=== PATIENT | female | born 1975 | race Caucasian/White ===

== ENCOUNTER → 2017-10-12 | Outpatient (CLI) | payer OTHER ==
[~2017-10-12] MED LIST: CIPR500T21 PO; FLUO40CA PO; FLUO40CA12 PO; HYDR-3730 PO; LISI1TAB8 PO; OMEG300C3 PO; OMG1KC PO; PROM25TA14 PO
--- NOTE | 2017-10-14 08:09 | Diagnostic Imaging Report ---
Bilateral screening mammogram 2D views with tomosynthesis. The current study was also evaluated with a Computer Aided Detection (CAD) system. INDICATION: Screening. No current complaints stated on the questionnaire. COMPARISON: 08/14/2013. FINDINGS: The breasts are composed of scattered fibroglandular densities. Occasional benign-appearing calcifications are seen. Allowing for technique and positional differences, no suspicious change is seen. IMPRESSION: No significant change. ACR BI-RADS Category 2: Benign findings. Result letter will be mailed to the patient. Note: At least 10% of breast cancer is not imaged by mammography. Dictated by: Dictated on workstation # [id number]
== END ==
LOC: RAD 10:21
PROVIDERS: ATTEND Obstetrics & Gynecology
DX: Z12.31 Encounter for screening mammogram for malignant neoplasm of breast (principal)
CPT/HCPCS: 77067

== ENCOUNTER → 2018-11-13 | Outpatient (CLI) | payer OTHER ==
--- NOTE | 2018-11-13 22:00 | Diagnostic Imaging Report ---
INDICATION: Routine screening. Comparison is made with prior mammograms from 10/12/2017 and 08/14/2013. 2-D and 3-D bilateral screening mammography was performed with computer-aided detection (CAD) system. FINDINGS: Scattered fibroglandular densities are identified bilaterally. The parenchymal pattern is stable. No new mass or malignant-appearing microcalcifications are seen. The axillae are unremarkable. IMPRESSION: No mammographic features suspicious for malignancy are identified. ACR BI-RADS Category 1: Negative. Result letter will be mailed to the patient. Note: At least 10% of breast cancer is not imaged by mammography. Dictated by: Dictated on workstation # [id number]
== END ==
LOC: RAD 08:57
PROVIDERS: ATTEND Obstetrics & Gynecology
DX: Z12.31 Encounter for screening mammogram for malignant neoplasm of breast (principal)
CPT/HCPCS: 77067

== ENCOUNTER → 2019-12-03 | Outpatient (CLI) | payer OTHER ==
--- NOTE | 2019-12-03 11:02 | Diagnostic Imaging Report ---
INDICATION: Routine screening. Comparison is made with prior mammogram 11/13/2018 at 10/12/2017. 2-D and 3-D bilateral screening mammography was performed with CAD. Scattered fibroglandular densities are identified bilaterally. No dominant mass or malignant-appearing microcalcifications are seen. Minimal nodularity in the upper outer left breast is seen, most consistent with benign etiology. Axillae are unremarkable. IMPRESSION: BI-RADS Category 2 No mammographic features suspicious for malignancy are identified. ACR BI-RADS Category 2: Benign findings. Result letter will be mailed to the patient. Note: At least 10% of breast cancer is not imaged by mammography. Dictated by: Dictated on workstation # [id number]
== END ==
LOC: RAD 08:46
PROVIDERS: ATTEND Obstetrics & Gynecology
DX: Z12.31 Encounter for screening mammogram for malignant neoplasm of breast (principal)
CPT/HCPCS: 77067

== ENCOUNTER → 2021-03-23 | Outpatient (CLI) | payer OTHER ==
[~2021-03-23] MED LIST changes: +LISI1TAB46 PO; -LISI1TAB8 PO
--- NOTE | 2021-03-23 10:15 | Diagnostic Imaging Report ---
INDICATION: Routine screening. COMPARISON: 12/03/2019 and 11/13/2018. TECHNIQUE: 2D and 3D bilateral screening mammography was performed with CAD. FINDINGS: Scattered fibroglandular densities are noted bilaterally. The parenchymal pattern is stable. No spiculated mass or malignant appearing microcalcifications are seen. The axillae are unremarkable. IMPRESSION: No mammographic features suspicious for malignancy are identified. ACR BI-RADS Category 1: Negative. Result letter will be mailed to the patient. Note: At least 10% of breast cancer is not imaged by mammography. Dictated by: Dictated on workstation # [id number]
== END ==
LOC: RAD 09:15
PROVIDERS: ATTEND Obstetrics & Gynecology
DX: Z12.31 Encounter for screening mammogram for malignant neoplasm of breast (principal)
CPT/HCPCS: 77063; 77067

== ENCOUNTER → 2021-04-06 | Outpatient (CLI) | payer OTHER ==
--- NOTE | 2021-04-06 10:25 | Diagnostic Imaging Report ---
PROCEDURE: US right lower extremity venous. TECHNIQUE: Multiple real-time grayscale images were obtained over the right lower extremity in various projections. Additional spectral analysis and color Doppler duplex images were also obtained. INDICATION: Right lower extremity lump. There is no evidence of right lower extremity DVT. Right lower extremity deep venous system shows normal compressibility with normal response augmentation and Valsalva. No fluid collection or mass is seen. There is a thrombosed superficial vein in the upper right calf region corresponding to the area of lump. Findings are consistent with superficial thrombophlebitis. IMPRESSION: 1. No evidence of right lower extremity DVT. 2. Findings consistent with superficial thrombophlebitis, corresponding to the area of lump in the right calf. Dictated by: Dictated on workstation # [id number]
== END ==
LOC: RAD 09:45
PROVIDERS: ATTEND Nurse Practitioner Family
DX: R22.41 Localized swelling, mass and lump, right lower limb (principal)

== ENCOUNTER 2022-04-29 05:35 | Outpatient (CLI) | payer OTHER ==
[2022-04-30] MEDS ORDERED: GLUC-203 PO (14:05)
[2022-04-30] MEDS ORDERED: MULT-974 PO (14:05)
[2022-04-30] MEDS ORDERED: FLUO40CA12 PO (14:05)
[2022-04-30] MEDS ORDERED: VITA1CAP PO (14:05)
[2022-04-30] MEDS ORDERED: CETI10CA PO (14:05)
[2022-04-30] MEDS ORDERED: MONT10TA21 PO (14:05)
== END 2022-04-30 14:08 | disposition home or self-care (01) ==
LOC: PREOP 05:35
PROVIDERS: ATTEND Obstetrics & Gynecology
DX: Z01.818 Encounter for other preprocedural examination (principal)

== ENCOUNTER 2022-05-07 08:35 | Day surgery (SDC) | payer OTHER ==
[2022-05-07] VITALS (10 sets, daily range): BP systolic 116–138; BP diastolic 68–93
[~2022-05-07] VITALS: Ht 170 cm; Wt 157.0 kg
[~2022-05-07 08:35] MED LIST changes: +CETI10CA PO; +GLUC-203 PO; +MONT10TA21 PO; +MULT-974 PO; +VITA1CAP PO
[2022-05-07] MEDS ORDERED: ONDANSETRON 4 MG/2 ML (SDV) Z0FRAN ONE ×2 (08:48→09:38)
[2022-05-07] MEDS ORDERED: proPOfol 200 MG/20 ML (DIPRIVAN) VIAL IV ONE ×2 (08:48→10:18)
[2022-05-07] MEDS ORDERED: MIDAZOLAM 2 MG/2 ML (VERSED) VIAL ONE (08:48)
[2022-05-07] MEDS ORDERED: LIDOCAINE PF 2% 5 ML (XYLOCAINE) VIAL ONE (08:48)
[2022-05-07] MEDS ORDERED: fentaNYL INJ 100 MCG/2 ML AMP ONE (08:48)
[2022-05-07] MEDS ORDERED: SEVOFLURANE (ULTANE) 15 ML INHAL SOLN ONE (08:48)
--- NOTE | 2022-05-07 09:25 | Progress Note-Pre Operative ---
Pre-Operative Progress Note H&P Reviewed The H&P was reviewed, patient examined and no changes noted. Date Seen by Provider: May 07, 2022 Time Seen by Provider: :24 Date H&P Reviewed: May 07, 2022 Time H&P Reviewed: 09:24 Pre-Operative Diagnosis: retained IUD LETTY NAVARRO MD May 07, 2022 09:25
--- NOTE | 2022-05-07 09:26 | Progress Note-Post Operative ---
Post-Operative Progess Note Surgeon (s)/Center Machine Operator (s) Surgeon LETTY NAVARRO MD Center Machine Operator: none Pre-Operative Diagnosis retained IUD Post-Operative Diagnosis same Procedure & Operative Findings Date of Procedure 05/07/22 Procedure Performed/Findings hysteroscopic removal of retained IUD Anesthesia Type general Estimated Blood Loss Estimated blood loss (mL): mn Specimens/Packing Specimens Removed copper T IUD With no strings detached and no strings discernible LETTY NAVARRO MD May 07, 2022 09:26
[2022-05-07] MEDS ORDERED: oxyCODONE/APAP 5/325MG (PERCOCET 5) TABLET PO PRN (09:30)
[2022-05-07] MEDS ORDERED: D5 LR IV SOLUTION 1,000 ML IV SCH (09:30)
[2022-05-07] MEDS ORDERED: fentaNYL INJ 100 MCG/2 ML AMP IVP PRN (09:30)
[2022-05-07] MEDS ORDERED: KETOROLAC 30 MG/ML VIAL IVP ONE (09:30)
[2022-05-07] MEDS ORDERED: ONDANSETRON 4 MG/2 ML (SDV) Z0FRAN IVP PRN ×2 (09:30→10:45)
[2022-05-07] MEDS ORDERED: IBUP-1780 PO (09:32)
--- NOTE | 2022-05-07 09:33 | Discharge Inst-Simple/Standard ---
Discharge Inst-Standard Discharge Medications New, Converted or Re-Newed RX: Transmitted to Pharmacy Patient Instructions/Follow Up Plan of Care/Instructions/FU: PRN Activity as Tolerated: Yes Discharge Diet: No Restrictions Other Inst to Patient RTC PRN LETTY NAVARRO MD May 07, 2022 09:33
[2022-05-07] MEDS ORDERED: FAMOTIDINE 20MG/2ML IV (PEPCID) ONE (09:38)
[2022-05-07] MEDS ORDERED: SCOPOLAMINE 1.5 MG (TRANSDERM-SCOP) PATCH ONE (09:38)
[2022-05-07] MEDS ORDERED: SCOPOLAMINE 1.5 MG (TRANSDERM-SCOP) PATCH TD ONE (10:00)
[2022-05-07] MEDS ORDERED: FAMOTIDINE 20MG/2ML IV (PEPCID) IVP ONE (10:00)
[2022-05-07] MEDS ORDERED: ONDANSETRON 4 MG/2 ML (SDV) Z0FRAN IVP ONE (10:00)
[2022-05-07] MEDS ORDERED: PROPOFOL INJECTION 50 ML IV ONE (10:19)
--- NOTE | 2022-05-07 10:39 | Anesthesia-General Post-Op ---
General Patient Condition Mental Status/LOC: Same as Preop Cardiovascular: Satisfactory Nausea/Vomiting: Absent Respiratory: Satisfactory Pain: Controlled Complications: Absent Post Op Complications Complications None Follow Up Care/Instructions Patient Instructions None needed. Anesthesia/Patient Condition Patient Condition Patient is doing well, no complaints, stable vital signs, no apparent adverse anesthesia problems. No complications reported per nursing. JOSE HUGHES CRNA May 07, 2022 10:39
[2022-05-07] MEDS ORDERED: LACTATED RINGERS 1,000 ML IV PRN (10:45)
[2022-05-07] MEDS ORDERED: morphine INJ 10 MG/ML 1ML (SYR OR VIAL) IVP ONE (10:45)
[2022-05-07] MEDS ORDERED: fentaNYL INJ 100 MCG/2 ML AMP IVP ONE (10:45)
--- NOTE | 2022-05-07 10:59 | Diagnostic Imaging Report ---
PROCEDURE: US NONOB transvaginal. TECHNIQUE: Multiple real-time grayscale images were obtained of the pelvis in various projections endovaginally. INDICATION: Evaluate IUD. Uterus measures 10.5 x 5.1 x 6.4 cm. There is an IUD appropriately centered within the endometrial canal. Endometrium is 5 mm in thickness. No myometrial mass is detected. The ovaries could not be visualized. There are cervical nabothian cysts present. No adnexal mass or free fluid is detected. IMPRESSION: 1. The IUD is appropriately centered within the endometrial canal. 2. Nonvisualized ovaries. Dictated by: Dictated on workstation # [id number]
--- NOTE | 2022-05-07 15:31 | OPERATIVE REPORT ---
DATE OF SERVICE: 05/07/2022 PREOPERATIVE DIAGNOSIS: Retained IUD. POSTOPERATIVE DIAGNOSIS: Retained IUD. OPERATIVE PROCEDURE: Removal of retained IUD hysteroscopically. OPERATIVE DESCRIPTION: With the patient in supine position under satisfactory general anesthesia, she was repositioned in dorsal lithotomy position in the Lukasz stirrups and prepped and draped in the usual fashion for vaginal surgery. Urinary bladder was drained with a straight catheter. Weighted speculum placed in posterior fornix of vagina, cervix exposed and grasped anteriorly with single tooth tenaculum. Uterus sounded to 12 cm with uterine sound. The cervix was then serially dilated with Mendoza dilators to a #20 Mendoza and then the final step in dilation was a #9 Hegar dilator. Hysteroscope was introduced and the IUD was readily apparent. It was transverse up in the left cornu of the uterus. The hysteroscope was removed and down on the location of the IUD, a Javan stone forceps was introduced in the uterine cavity. The IUD was grasped and removed intact. The endometrial cavity was explored. The strings were not attached to the IUD. The cavity was explored, and no strings were identified. The hysteroscope and tenaculum were removed. There was no bleeding from the cervical os. There was minimal bleeding from the uterus itself; minimal bleeding from the puncture sites from the tenaculum. Sponge and needle counts were correct on completion of the procedure. Blood loss was minimal. The patient tolerated the procedure well and was transferred to recovery room after being uneventfully awakened from her general anesthesia. Job ID: [id number] DocumentID: [id number] Dictated Date: 05/07/2022 10:40:37 Sugar Reprocess Operator Head Date: 05/07/2022 15:30:36 Dictated By: LETTY NAVARRO MD
== END 2022-05-07 12:43 | disposition home or self-care (01) ==
LOC: SDC 08:35
PROVIDERS: ATTEND Obstetrics & Gynecology
DX: T83.39XA Other mechanical complication of intrauterine contraceptive device, initial encounter (principal)
CPT/HCPCS: 76830

== ENCOUNTER → 2022-05-10 | Outpatient (CLI) | payer OTHER ==
[2022-05-07 09:35] LABS: BASOPHILS % (AUTO) 0 % (0-10); EOSINOPHILS # (AUTO) 0.1 10^3/uL (0.0-0.3); EOSINOPHILS % (AUTO) 1 % (0-10); HEMATOCRIT 37 % (35-52); HEMOGLOBIN 11.5 g/dL (11.5-16.0); LYMPHOCYTES # (AUTO) 3.7 10^3/uL (1.0-4.0); LYMPHOCYTES % (AUTO) 38 % (12-44); MEAN CORPUSCULAR HEMOGLOBIN 25 pg (25-34); MEAN CORPUSCULAR HGB CONC 32 g/dL (32-36); MEAN CORPUSCULAR VOLUME 79 fL (80-99); MEAN PLATELET VOLUME 9.8 fL (9.0-12.2); MONOCYTES # (AUTO) 0.8 10^3/uL (0.0-1.0); MONOCYTES % (AUTO) 8 % (0-12); NEUTROPHILS # (AUTO) 5.2 10^3/uL (1.8-7.8); NEUTROPHILS % (AUTO) 53 % (42-75); PLATELET COUNT 334 10^3/uL (130-400); WHITE BLOOD COUNT 9.9 10^3/uL (4.3-11.0)
[~2022-05-10] VITALS: Ht 170 cm; Wt 157.0 kg
[~2022-05-10] MED LIST changes: +FAMOTIDINE 20MG/2ML IV (PEPCID) IVP ONE; +IBUP-1780 PO; +LACTATED RINGERS 1,000 ML IV PRN; +ONDANSETRON 4 MG/2 ML (SDV) Z0FRAN IVP ONE; +SCOPOLAMINE 1.5 MG (TRANSDERM-SCOP) PATCH TD ONE
[2022-05-10 09:25] LABS: HEMATOCRIT 38 % (35-52); HEMOGLOBIN 11.8 g/dL (11.5-16.0); MEAN CORPUSCULAR HEMOGLOBIN 25 pg (25-34); MEAN CORPUSCULAR HGB CONC 31 g/dL (32-36); MEAN CORPUSCULAR VOLUME 79 fL (80-99); MEAN PLATELET VOLUME 9.7 fL (9.0-12.2); PLATELET COUNT 321 10^3/uL (130-400); WHITE BLOOD COUNT 13.1 10^3/uL (4.3-11.0)
[2022-05-10 09:43] LABS: ALBUMIN 3.6 GM/DL (3.2-4.5); BILIRUBIN,TOTAL 0.3 MG/DL (0.1-1.0); CALCIUM 8.8 MG/DL (8.5-10.1); CREATININE SERUM 0.77 MG/DL (0.60-1.30); POTASSIUM 3.8 MMOL/L (3.6-5.0); TOTAL PROTEIN 6.6 GM/DL (6.4-8.2)
--- NOTE | 2022-05-10 13:14 | Diagnostic Imaging Report ---
INDICATION: Routine screening. COMPARISON: 03/23/2021 and 12/03/2019. TECHNIQUE: 2D and 3D bilateral screening mammography was performed with CAD. FINDINGS: Scattered fibroglandular densities are identified bilaterally. The parenchymal pattern is stable. No mass or malignant-appearing microcalcifications are seen. The axillae are unremarkable. IMPRESSION: No mammographic features suspicious for malignancy are identified. ACR BI-RADS Category 1: Negative. Result letter will be mailed to the patient. Note: At least 10% of breast cancer is not imaged by mammography. Dictated by: Dictated on workstation # [id number]
== END ==
LOC: RAD 09:30
PROVIDERS: ATTEND Family Medicine
DX: Z12.31 Encounter for screening mammogram for malignant neoplasm of breast (principal)
CPT/HCPCS: 36415; 77063; 77067; 80053; 80061; 84436; 84443; 85025; 85027; 87081

== ENCOUNTER 2023-04-09 10:30 | Emergency (ER) | payer OTHER ==
[~2023-04-09] VITALS: Ht 175 cm; Wt 149.0 kg
[~2023-04-09 10:30] MED LIST changes: -FAMOTIDINE 20MG/2ML IV (PEPCID) IVP ONE; -LACTATED RINGERS 1,000 ML IV PRN; +MONT-47 PO; -MONT10TA21 PO; -ONDANSETRON 4 MG/2 ML (SDV) Z0FRAN IVP ONE; -SCOPOLAMINE 1.5 MG (TRANSDERM-SCOP) PATCH TD ONE
--- NOTE | 2023-04-09 11:38 | ED Back Pain ---
General Chief Complaint: Back Problems Stated Complaint: BACK PAIN Nursing Triage Note: PT AMB TO RM 5. PT CO OF BACK PAIN, PT STATES 3 DAYS AGO FELT SOME PAIN BUT YESTERDAY BECAME MUCH WORSE. RATES BACK PAIN 07/07. PT IS CURRENTLY TAKING IBUPROFEN AND TYLENOL FOR PAIN Source of Information: Patient Exam Limitations: No Limitations History of Present Illness Date Seen by Provider: April 09, 2023 Time Seen by Provider: 11:25 Initial Comments 47-year-old female presents to the ED with complaints of right lower back pain. She states that on Tuesday when she got up for work she felt something pull in her back. She reports that stretching and rest has helped. She then tried to get up for work last night and pulled it again. She states the pain is best when she is resting and lying still, but states when she walks the pain comes up to a 8 or 9 out of 10. She denies any numbness or tingling in her back or legs, denies any urinary or bowel incontinence. She has been taking 800 mg of ibuprofen for pain. Last dose was around 8 AM this morning. Past medical history includes hypertension and depression. She takes Prozac, lisinopril/hydrochlorothiazide, Zyrtec, Singulair. Allergies and Home Medications Allergies Coded Allergies: Sulfa (Sulfonamide Antibiotics) (Verified Allergy, Intermediate, 02/16/16) levofloxacin (Verified Allergy, Intermediate, 02/16/16) Patient Home Medication List Home Medication List Reviewed: Yes Baclofen (Baclofen) 10 Mg Tablet, 10 MG PO TID Prescribed by: Tammy Feliciano on 04/09/23 1320 Cetirizine HCl (Zyrtec) 10 Mg Capsule, 10 MG PO DAILY, (Reported) Entered as Reported by: WESLEY BARNARD on 04/30/22 1405 Fluoxetine HCl (Prozac) 40 Mg Capsule, 40 MG PO DAILY, (Reported) Entered as Reported by: WESLEY BARNARD on 04/30/22 1405 Glucosam/Chond/Hyalu/Cf Borate (Move Free Joint Health Tablet) 750 Mg-100 Mg- 1.65 Mg-108 Mg Tablet, 1 EACH PO BID, (Reported) Entered as Reported by: WESLEY BARNARD on 04/30/22 1405 Ibuprofen (Ibuprofen) 800 Mg Tablet, 800 MG PO Q4H PRN for PAIN Prescribed by: LETTY GARCIA on 05/07/22 0932 Lidocaine (Salonpas) 4 % Adh..patch, 1 EACH TP DAILY Prescribed by: Tammy Feliciano on 04/09/23 1320 Lisinopril/Hydrochlorothiazide (Lisinopril-Hctz 20-12.5 mg Tab) 1 Each Tablet, 0.5 EACH PO HS, (Reported) Entered as Reported by: BELKYS العراقي on 02/16/16 1216 Methylprednisolone (Methylprednisolone Dose Pack) 4 Mg Tab.ds.pk, 4 MG PO UD Prescribed by: Tammy Feliciano on 04/09/23 1320 Montelukast Sodium (Singulair) 10 Mg Tablet, 10 MG PO DAILY, (Reported) Entered as Reported by: WESLEY BARNARD on 04/30/22 1405 Multivitamin (Multi-Vitamin Daily) 1 Each Tablet, 1 EACH PO DAILY, (Reported) Entered as Reported by: WESLEY BARNARD on 04/30/22 1405 Vitamin B Complex (Vitamin B Complex) 1 Each Capsule, 1 EACH PO DAILY, (R eported) Entered as Reported by: WESLEY BARNARD on 04/30/22 1405 Review of Systems Constitutional: no symptoms reported Musculoskeletal: back pain Past Cckgvkg-Hqqjbh-Kutzyo Hx Patient Social History Tobacco Use?: No Substance use?: No Alcohol Use?: No Pt feels they are or have been: No Immunizations Up To Date Influenza Vaccine Up-to-Date: Yes; Up-to-Date First/Initial COVID19 Vaccinat: 2019 Second COVID19 Vaccination Nick: 2020 Third COVID19 Vaccination Date: 2020 Seasonal Allergies Seasonal Allergies: No Past Medical History Surgery/Hospitalization HX: GALL BLADDER Surgeries: Yes (GALLBLADDER) Gallbladder Respiratory: No Cardiac: Yes Hypertension Neurological: Yes Headaches /Migraines Reproductive Disorders: No PSYCHOPAEDIC NURSE History: IUD Genitourinary: No Gastrointestinal: No Musculoskeletal: No Endocrine: No Cancer: No Psychosocial: No Integumentary: No Blood Disorders: No Family Medical History Colon cancer 19 FATHER Diabetes mellitus 19 MOTHER Hypertension 19 FATHER 19 MOTHER Cancer, Diabetes Physical Exam Vital Signs Vital Signs - First Documented 04/09/23 04/09/23 10:41 13:21 Temp 35.6 Pulse 77 Resp 20 B/P (MAP) 144/90 (108) Pulse Ox 99 Capillary Refill : Less Than 3 Seconds Height, Weight, BMI Height: 5'9.00" Weight: 318lbs. 7.0oz. 144.765429gv; 48.00 BMI Method:Stated General Appearance: No Apparent Distress, WD/WN Neck: Normal Inspection, Supple Cardiovascular: Regular Rate, Rhythm Respiratory: Lungs Clear, Normal Breath Sounds, No Accessory Muscle Use, No Respiratory Distress Back: Muscle Spasm (Mild tenderness to palpation of right side of lumbar spine and right lower back) Extremity: Normal Inspection, Normal Range of Motion Neurologic/Psychiatric: Alert, Normal Mood/Affect Skin: Normal Color, Warm/Dry Progress/Results/Core Measures Results/Orders My Orders Orders - TAMMY FELICIANO APRN Ketorolac Injection (Toradol Injection) (04/09/23 11:45) Orphenadrine Inj (Ed Only) (Norflex Inje (04/09/23 11:45) Dexamethasone Injection (Decadron Inje (04/09/23 11:45) Lidocaine 4% Patch (Salonpas 4% Patch) (04/10/23 09:00) Lidocaine 4% Patch (Salonpas 4% Patch) (04/09/23 12:05) Fentanyl Inj (Sublimaze Injection) (04/09/23 12:45) Medications Given in ED Current Medications Medications Dose Ordered Sig/Kathi Route Start Time Stop Time Status Last Admin Dose Admin Dexamethasone Sodium Phosphate 10 mg ONCE ONCE IM 04/09/23 11:45 04/09/23 11:46 DC 04/09/23 11:42 10 MG Fentanyl Citrate 75 mcg ONCE ONCE IM 04/09/23 12:45 04/09/23 12:46 DC 04/09/23 13:10 75 MCG Ketorolac Tromethamine 30 mg ONCE ONCE IM 04/09/23 11:45 04/09/23 11:46 DC 04/09/23 11:42 30 MG Orphenadrine Citrate 60 mg ONCE ONCE IM 04/09/23 11:45 04/09/23 11:46 DC 04/09/23 11:42 60 MG Vital Signs/I&O 04/09/23 04/09/23 10:41 13:21 Temp 35.6 Pulse 77 72 Resp 20 16 B/P (MAP) 144/90 (108) 132/75 Pulse Ox 99 Blood Pressure Mean: 108 Progress Progress Note : Progress Note Patient seen and evaluated, resting comfortably in bed, no acute distress. Based on exam and symptoms, this is likely a pulled muscle. Toradol, Norflex, Decadron, and lidocaine patch ordered. 1241 patient reports her pain is still present when she sat up on the bed. Will give a shot of fentanyl and discharged with Medrol Dosepak, baclofen, and lidocaine patches. Patient instructed to continue taking 800 mg of ibuprofen. Discharge instructions and return precautions provided. Departure Impression Primary Impression: Back strain Disposition: 01 HOME, SELF-CARE Condition: Stable Departure-Patient Inst. Decision time for Depature: 12:43 Referrals: KVNG RAINES MD (PCP/Family) Primary Care Physician Patient Instructions: Back Muscle Strain (DC) Add. Discharge Instructions: Take Medrol Dosepak as prescribed. Take baclofen for muscle spasms as needed. Use lidocaine patches as needed. Wear for 12 hours at a time, and remove for 12 hours before placing another one. Try stretching your back gently. You may try heat or ice whichever feels better. Return for severe pain, inability to walk, numbness or tingling in your legs specifically your inner thighs, urinary or bowel incontinence or retention, or any other new, concerning, or worsening symptoms. All discharge instructions reviewed with patient and/or family. Voiced understanding. Scripts Baclofen (Baclofen) 10 Mg Tablet 10 MG PO TID, #21 TAB 0 Refills Prov: TAMMY FELICIANO APRN 04/09/23 Lidocaine (Salonpas) 4 % Adh..patch 1 EACH TP DAILY for 14 Days, #14 PATCH 0 Refills wear for 12 hours, remove for 12 hours before placing a new one Prov: TAMMY FELICIANO APRN 04/09/23 Methylprednisolone (Methylprednisolone Dose Pack) 4 Mg Tab.ds.pk 4 MG PO UD for 6 Days, #21 PKG 0 Refills PER DOSE PACK INSTRUCTIONS Prov: TAMMY FELICIANO APRN 04/09/23 TAMMY FELICIANO APRN April 09, 2023 11:38
[2023-04-09] MEDS ORDERED: KETOROLAC 60 MG/2 ML VIAL IM ONE (11:45)
[2023-04-09] MEDS ORDERED: ORPHENADRINE 60 MG/2 ML (NORFLEX) AMP (ED ONLY) IM ONE (11:45)
[2023-04-09] MEDS ORDERED: LIDOCAINE 4% (SALONPAS) PATCH ONE (12:05)
[2023-04-09] MEDS ORDERED: fentaNYL INJ 100 MCG/2 ML AMP IM ONE (12:45)
[2023-04-09] MEDS ORDERED: BACL5SOL2 PO (12:48)
[2023-04-09] MEDS ORDERED: LIDO1ADH74 TP ×2 (12:48→13:20)
[2023-04-09] MEDS ORDERED: METH4TAB10 PO ×2 (12:48→13:20)
[2023-04-09] MEDS ORDERED: BACL10TA PO ×2 (12:49→13:20)
[2023-04-09 13:21] VITALS: BP 132/75
[2023-04-10] MEDS ORDERED: LIDOCAINE 4% (SALONPAS) PATCH TOP SCH (09:00)
== END 2023-04-09 13:25 | disposition home or self-care (01) ==
LOC: EDUNIT# 10:30 → ER 10:32
DX: S39.012A Strain of muscle, fascia and tendon of lower back, initial encounter (principal); I10 Essential (primary) hypertension; F32.A Depression, unspecified; Z79.899 Other long term (current) drug therapy; X50.9XXA Other and unspecified overexertion or strenuous movements or postures, initial encounter
CPT/HCPCS: 99284

== ENCOUNTER → 2023-07-04 | Outpatient (CLI) | payer OTHER ==
[~2023-07-04] MED LIST changes: +BACL10TA PO; +BACL5SOL2 PO; +LIDO1ADH74 TP; +METH4TAB10 PO
[2023-07-04 09:05] LABS: BASOPHILS % (AUTO) 0 % (0-10); EOSINOPHILS # (AUTO) 0.1 10^3/uL (0.0-0.3); EOSINOPHILS % (AUTO) 2 % (0-10); HEMATOCRIT 37 % (35-52); HEMOGLOBIN 11.6 g/dL (11.5-16.0); LYMPHOCYTES # (AUTO) 2.7 10^3/uL (1.0-4.0); LYMPHOCYTES % (AUTO) 28 % (12-44); MEAN CORPUSCULAR HEMOGLOBIN 25 pg (25-34); MEAN CORPUSCULAR HGB CONC 32 g/dL (32-36); MEAN CORPUSCULAR VOLUME 79 fL (80-99); MONOCYTES # (AUTO) 0.7 10^3/uL (0.0-1.0); MONOCYTES % (AUTO) 7 % (0-12); NEUTROPHILS # (AUTO) 5.9 10^3/uL (1.8-7.8); NEUTROPHILS % (AUTO) 62 % (42-75); PLATELET COUNT 280 10^3/uL (130-400); WHITE BLOOD COUNT 9.4 10^3/uL (4.3-11.0)
[2023-07-04 09:17] LABS: ALBUMIN 3.7 GM/DL (3.2-4.5); POTASSIUM 3.6 MMOL/L (3.6-5.0)
[2023-07-04 09:18] LABS: CALCIUM 8.7 MG/DL (8.5-10.1)
[2023-07-04 09:19] LABS: TOTAL PROTEIN 6.9 GM/DL (6.4-8.2)
[2023-07-04 09:21] LABS: BILIRUBIN,TOTAL 0.3 MG/DL (0.1-1.0)
[2023-07-04 09:23] LABS: CREATININE SERUM 0.79 MG/DL (0.60-1.30)
--- NOTE | 2023-07-04 10:43 | Diagnostic Imaging Report ---
INDICATION: Routine screening. COMPARISON: 05/10/2022 and 03/23/2021. TECHNIQUE: 2D and 3D bilateral screening mammography was performed with CAD. FINDINGS: Scattered fibroglandular densities are identified bilaterally. The parenchymal pattern is stable. No mass or malignant-appearing microcalcifications are identified. The axillae are unremarkable. IMPRESSION: No mammographic features suspicious for malignancy are identified. ACR BI-RADS Category 1: Negative. Result letter will be mailed to the patient. Note: At least 10% of breast cancer is not imaged by mammography. Dictated by: Dictated on workstation # [id number]
== END ==
LOC: RAD 08:39
PROVIDERS: ATTEND Family Medicine
DX: Z12.31 Encounter for screening mammogram for malignant neoplasm of breast (principal); Z00.01 Encounter for general adult medical examination with abnormal findings
CPT/HCPCS: 36415; 77063; 77067; 80053; 80061; 85025